=== PATIENT | male | born 1975 | race Caucasian/White ===

== ENCOUNTER 2017-03-24 10:25 | Day surgery (SDC) | payer OTHER ==
[2017-03-20 14:32] VITALS: BMI 35.2
[~2017-03-24 10:25] MED LIST: LACTATED RINGERS 1,000 ML IV SCH
[2017-03-24 10:41] VITALS: TEMP 98
[2017-03-24] MEDS ORDERED: LACTATED RINGERS 1,000 ML IV ONE (10:41)
[2017-03-24] MEDS ORDERED: LIDOCAINE 1% 20 ML VIAL (10MG/ML) FOR IV START INTRADERMA ONE (10:42)
[2017-03-24] MEDS ORDERED: LIDOCAINE 1% INJ 10MG/ML (20 ML MDV) ONE (11:32)
[2017-03-24] MEDS ORDERED: PROPOFOL 10 MG/ML 20 ML VIAL IV ONE (11:32)
[2017-03-24 11:55] VITALS: RESP 16
--- NOTE | 2017-03-24 11:55 | P.PCN ---
Date of Procedure: 03/24/17 Procedure(s) Performed: Procedure: Esophagogastroduodenoscopy and biopsy. Preoperative diagnosis: Chronic reflux and epigastric pain. Postoperative diagnosis: 1. Very small sliding hiatal hernia with no obvious esophagitis or complicated reflux disease. 2. Mild antral gastritis with no ulcers or gastric outlet obstruction. Preparation and sedation: Was provided by anesthesia. Brief clinical history: The patient is a 41-year-old male who is referred for this evaluation because of history of epigastric pain of around 1-2 months that responded to medical therapy with PPI with recurrence when he stops his medication. He had chronic reflux symptoms that he medicated with antacids and H2 blockers over the last few years. This evaluation is to assess for esophagitis, complicated reflux disease or other pathology. Procedure: With the patient on his left lateral decubitus position and after informed consent and adequate sedation, I passed the Olympus-GIF 160 video upper endoscope through the cricopharyngeus down the esophagus. GE junction was around 39 cm from the incisors and there was a very small sliding hiatal hernia less than 1 cm. The esophagus did not show any erosions, ulcers, strictures or Beebe's esophagus. The endoscope was then passed into the stomach which was insufflated with air and inspected in detail including the retroflex view in the cardia. There was minimal mottling and erythema in the antrum but no ulcers or erosions. Pyloric channel, duodenal bulb, post bulbar area and descending duodenum appeared within normal limits. Because of his symptoms I obtained biopsies from the duodenum, antrum and esophagus then the endoscope was withdrawn. The patient tolerated the procedure well. Plan: The patient was reassured. Will await pathology results. He will follow up with you as planned and further plans can be made based on his course and biopsy results. I would be happy to see in the office of his symptoms persist.
[2017-03-24 12:31] VITALS: BP 135/83; PULSE 80
== END 2017-03-24 12:43 | disposition home or self-care (01) ==
LOC: ORWHC2ENDO 10:25
DX: K21.0 Gastro-esophageal reflux disease with esophagitis (principal); K29.50 Unspecified chronic gastritis without bleeding; K44.9 Diaphragmatic hernia without obstruction or gangrene; Z72.0 Tobacco use; Z79.899 Other long term (current) drug therapy; Z88.8 Allergy status to other drugs, medicaments and biological substances; Z91.030 Bee allergy status
CPT/HCPCS: 88305; 88342; 43239; J2001; J2704